=== PATIENT | female | born 1990 | race African-American/Black ===

== ENCOUNTER 2019-07-09 08:33 | Emergency (ER) | payer BC, MEDICAID ==
[2019-07-09 08:44] VITALS: BP 115/83
--- NOTE | 2019-07-09 10:16 | UC ---
Abdominal Pain Female HPI - HPI Summary HPI Summary: 2 DAYS OF RIGHT LOWER QUADRANT PAIN, NAUSEA, SUBJECTIVE FEVER AND CHILLS. APPETITE IS DOWN. DENIES URINARY SYMPTOMS. - History of Current Complaint Chief Complaint: UCGeneralIllness Stated Complaint: ABD PAIN Time Seen by Provider: 07/09/19 09:57 Hx Obtained From: Patient Hx Last Menstrual Period: 06/09/19 Onset/Duration: Gradual Onset, Lasting Days, Still Present Timing: Constant Severity Initially: Moderate Severity Currently: Moderate Pain Intensity: 2 Pain Scale Used: 0-10 Numeric Location: Discrete At: RLQ Radiates: No Character: Dull Aggravating Factor(s): Food, Movement Alleviating Factor(s): Nothing Associated Signs and Symptoms: Positive: Fever, Decreased Appetite, Nausea. Negative: Urinary Symptoms Allergies/Adverse Reactions: Allergies Allergy/AdvReac Type Severity Reaction Status Date / Time No Known Allergies Allergy Verified 07/09/19 08:38 Home Medications: Home Medications Sertraline* [Zoloft*] 100 mg PO DAILY 07/09/19 [History Confirmed 07/09/19] PMH/Surg Hx/FS Hx/Imm Hx Previously Healthy: Yes - Surgical History Surgical History: None - Family History Known Family History: Positive: Non-Contributory - Social History Alcohol Use: Occasionally Substance Use Type: None Smoking Status (MU): Never Smoked Tobacco Review of Systems All Other Systems Reviewed And Are Negative: Yes Constitutional: Positive: Fever, Chills Respiratory: Positive: Negative Cardiovascular: Positive: Negative Gastrointestinal: Positive: Abdominal Pain, Nausea Genitourinary: Positive: Negative Physical Exam Triage Information Reviewed: Yes Appearance: Well-Appearing, No Pain Distress, Well-Nourished Vital Signs: Initial Vital Signs Temp 97.9 F 07/09/19 08:39 Pulse 90 07/09/19 08:39 Resp 18 07/09/19 08:39 BP 115/83 07/09/19 08:39 Pulse Ox 100 07/09/19 08:39 Vital Signs Reviewed: Yes Eyes: Positive: Conjunctiva Clear ENT: Positive: Hearing grossly normal Neck: Positive: Supple Respiratory Exam: Normal Cardiovascular Exam: Normal Abdomen Description: Positive: Nontender - RLQ TENDERNESS, Soft, Guarding, Other : - POS OBTURATOR, POS PSOAS. PAIN WITH LIGHT PERCUSSION. Negative: Distended Bowel Sounds: Positive: Present Musculoskeletal: Positive: No Edema Neurological: Positive: Alert Psychological: Positive: Age Appropriate Behavior Skin: Negative: Rashes Abd Pain Female Course/Dx - Course Course Of Treatment: CONCERN FOR ACUTE APPENDICITIS. PT OFFERED TRANSPORT TO THE ER BY AMBULANCE BUT DECLINES. ADVISED THAT BY NOT TRAVELING IN A MONITORED SETTING SHE COULD BE RISKING WORSENING OF HER CONDITION THAT COULD POSE A THREAT TO HER LIFE, HEALTH AND MEDICAL SAFETY. SHE VERBALIZES UNDERSTANDING AND CONTINUES TO DECLINE AMBULANCE TRANSFER. PT INSTRUCTED TO BE NPO. - Differential Dx/Diagnosis Provider Diagnosis: RLQ abdominal pain Discharge ED - Sign-Out/Discharge Documenting (check all that apply): Patient Departure All imaging exams completed and their final reports reviewed: No Studies - Discharge Plan Condition: Stable Disposition: TRANS HIGHER LVL OF CARE FAC Patient Education Materials: Abdominal Pain (ED) Referrals: No Primary Care Phys,NOPCP [Primary Care Provider] - Additional Instructions: I'M CONCERNED ABOUT YOUR APPENDIX. GO DIRECTLY TO [facility] ER FROM HERE FOR FURTHER EVALUATION. YOU HAVE DECLINED TRANSFER TO THE ER BY AMBULANCE. BE ADVISED THAT BY NOT TRAVELING IN A MONITORED SETTING YOU COULD BE RISKING WORSENING OF YOUR CONDITION THAT COULD POSE A THREAT TO YOUR LIFE, HEALTH AND MEDICAL SAFETY. - Billing Disposition and Condition Condition: STABLE Disposition: Trans Higher Lvl of Care Fac
== END 2019-07-09 10:16 | disposition short-term general hospital (02) ==
LOC: UCEAST 08:33
DX: R10.31 Right lower quadrant pain (principal)
CPT/HCPCS: 99202; G0463

== ENCOUNTER 2019-07-29 11:41 | Emergency (ER) | payer BC ==
--- NOTE | 2019-07-29 12:52 | ED ---
Abdominal Pain/Female - HPI Summary HPI Summary: Patient is a 29 y/o F presenting to [facility] with complaints of RLQ pain. Patient had similar pain 2-2.5 weeks ago, at [facility] and she had CT ABD/PEL with contrast which showed no appendicitis. The pain spontaneously resolved but has now returned yesterday, 07/28/19. No nausea, vomiting, fever, vaginal bleeding or dysuria, but pain is more severe. At present, pain is rated 7/10. She reports movement aggravates pain. She denies Hx of gallbladder issues, ovarian cysts, ectopic , STI. She has never been . Patient is on Sertaline 100 mg. She denies allergies to medications. Patient denies tobacco and substance usage. She states that she drinks alcohol socially. FMHx of diabetes and HTN is reported. Patient states her last PO intake was 1/2 a cup of coffee and a cereal bar this morning at around 0800, 07/29/19. Pulse 96, o2 100 on RA, BP 147/100. Home medications and allergies are reviewed. Patient drove herself to ED. Allergies Allergy/AdvReac Type Severity Reaction Status Date / Time No Known Allergies Allergy Verified 07/09/19 08:38 - History of Current Complaint Chief Complaint: EDAbdPain Stated Complaint: LOWER ABDOMINAL PAIN PER PT Time Seen by Provider: 07/29/19 12:28 Hx Obtained From: Patient Hx Last Menstrual Period: 07/11/2019 Onset/Duration: Lasting Days, Still Present Timing: Constant Severity Initially: Moderate Severity Currently: Severe Pain Intensity: 8 Pain Scale Used: 0-10 Numeric Location: Discrete At: RLQ Radiates: No Character: Sharp Aggravating Factor(s): Movement Alleviating Factor(s): Nothing Associated Signs and Symptoms: Negative: Fever, Urinary Symptoms - no dysuria, Vaginal Bleeding, Nausea, Vomiting Allergies/Adverse Reactions: Allergies Allergy/AdvReac Type Severity Reaction Status Date / Time No Known Allergies Allergy Verified 07/09/19 08:38 PMH/Surg Hx/FS Hx/Imm Hx Previously Healthy: Yes Endocrine/Hematology History: Denies: Hx Diabetes, Hx Thyroid Disease Cardiovascular History: Denies: Hx Hypertension Respiratory History: Denies: Hx Asthma, Hx Chronic Obstructive Pulmonary Disease (COPD) GI History: Denies: Hx Ulcer - Surgical History Surgical History: None Infectious Disease History: No Infectious Disease History: Denies: Hx Hepatitis, Hx Human Immunodeficiency Virus (HIV), Traveled Outside the [place] in Last 30 Days - Family History Known Family History: Positive: Hypertension, Diabetes - Social History Alcohol Use: Occasionally Substance Use Type: Reports: None Smoking Status (MU): Never Smoked Tobacco Review of Systems Negative: Fever Cardiovascular: Negative Respiratory: Negative Positive: Abdominal Pain. Negative: Vomiting, Nausea Genitourinary: Other - negative - vaginal bleeding Negative: dysuria Skin: Negative Neurological: Negative Psychological: Normal All Other Systems Reviewed And Are Negative: Yes Physical Exam - Summary Physical Exam Summary: Appearance: Ill-appearing, severe acute pain distress due to RLQ abdominal pain , thin-appearing Skin: Warm, color reflects adequate perfusion, dry Head: Normal Head/Face inspection, atraumatic Eyes: Conjunctiva clear ENT: Normal inspection Neck: Supple, no nodes, no JVD Respiratory: Lungs clear, normal breath sounds, no respiratory distress Cardio: RRR, No murmur, pulses normal, brisk capillary refill Abdomen: Soft, RLQ tenderness with guarding and no rebound, no masses, no distention Bowel sounds: Present Musculoskeletal: Strength Intact/ROM intact, no calf tenderness, no edema. Psychological: Normal Neuro: Alert, muscle tone normal, no focal deficit Triage Information Reviewed: Yes Vital Signs On Initial Exam: Initial Vitals Temp Pulse Resp BP Pulse Ox 98.9 F 89 16 127/99 99 07/29/19 11:42 07/29/19 11:42 07/29/19 11:42 07/29/19 11:42 07/29/19 11:42 Vital Signs Reviewed: Yes Procedures - Sedation Patient Received Moderate/Deep Sedation with Procedure: No Diagnostics - Vital Signs Vital Signs Temp Pulse Resp BP Pulse Ox 07/29/19 11:42 98.9 F 89 16 127/99 99 - Laboratory Result Diagrams: 07/29/19 15:00 07/29/19 15:00 Lab Statement: Any lab studies that have been ordered have been reviewed, and results considered in the medical decision making process. - CT CT ABD/PEL CT Interpretation Completed By: Radiologist Summary of CT Findings: IMPRESSION: 1. NORMAL APPENDIX. 2. RIGHT OVARIAN CYST. 3. LARGE AMOUNT OF STOOL THROUGHOUT THE COLON. 4. FATTY INFILTRATION OF THE LIVER. THIS REPORT WAS REVIEWED BY DR. CANO. - Ultrasound APPENDIX US Ultrasound Interpretation Completed By: Radiologist Summary of Ultrasound Findings: APPENDIX US IMPRESSION: The appendix is not identified. THIS REPORT WAS REVIEWED BY DR. CANO. Re-Evaluation - Re-Evaluation First Eval Re-Evaluation Time: 14:24 Comment: Nurse Asuncion reports that IV access is unable to be obtained. Second Eval Re-Evaluation Time: 20:00 Change: Improved Comment: Pt feels much better. Ambulated to BR. Pain is a 2-3, tolerable for pt. Discussed CT results. Pt understands and will have REO ASSET MANAGER follow up. Abdominal Pain Fem Course/Dx - Course Course Of Treatment: Patient is a 29 y/o F presenting to [facility] with complaints of RLQ pain. Patient had similar pain 2-2.5 weeks ago, at [facility] she had CT ABD/PEL at with contrast which showed no appendicitis. The pain spontaneously resolved but has now returned yesterday, 07/28/19. No nausea, vomiting, fever, vaginal bleeding or dysuria, but pain is more severe. She denies Hx of gallbladder issues, ovarian cysts, ectopic , STI. Abdomen : Soft, RLQ tenderness with guarding and no rebound, no masses, no distention. Bloodwork was obtained. Abnormal values include MPV 7.2, chloride 99. UA was negative. During ED course, patient received fluids and 30 mg IV toradol. APPENDIX US IMPRESSION: The appendix is not identified. CT ABD/PEL to be obtained. CT ABD/PEL IMPRESSION: 1. NORMAL APPENDIX. 2. RIGHT OVARIAN CYST. 3. LARGE AMOUNT OF STOOL THROUGHOUT THE COLON. 4. FATTY INFILTRATION OF THE LIVER. Results of labs and scans were discussed. Patient reports improvement of pain. She will be discharged to home and follow up with REO ASSET MANAGER. - Diagnoses Differential Diagnosis: Positive: Appendicitis, Ectopic , Irritable Bowel Syndrome, Ovarian Cyst, Renal Colic Provider Diagnoses: Right ovarian cyst, Fatty liver, Constipation Discharge ED - Sign-Out/Discharge Documenting (check all that apply): Patient Departure - discharge - Discharge Plan Condition: Stable Disposition: HOME Patient Education Materials: Ovarian Cyst (ED) Forms: *Work Release Referrals: [facility] [Outside] - 2 Days Raul Mar MD [Medical Doctor] - As Soon As Possible Additional Instructions: We have given you a copy of your CT scan showing an ovarian cyst. You will need definite follow up for this with REO ASSET MANAGER. Your appendix is normal at this time. You were given ketorolac 30mg IV and IV fluids while you were in the ER which helped your symptoms. Please return to the ER if you have any new or worsening symptoms. - Billing Disposition and Condition Condition: STABLE Disposition: Home - Attestation Statements Document Initiated by Norm: Yes Documenting Scribe: FABIÁN SHEPHERD Provider For Whom Norm is Documenting (Include Credential): OLIVIA CANO MD Scribe Attestation: FABIÁN Arzola, scribed for OLIVIA CANO MD on 08/14/19 at 2050. Scribe Documentation Reviewed: Yes Provider Attestation: The documentation as recorded by the FABIÁN bergman accurately reflects the service I personally performed and the decisions made by me, OLIVIA CANO MD Status of Scribe Document: Viewed
[2019-07-29] MEDS: NS 0.9% 1000 ML** 2,000 ML IV ONE (15:05)
[2019-07-29 15:13] LABS: Urine Appearance Clear; Urine Bilirubin Negative (Negative); Urine Blood Negative (Negative); Urine Color Yellow; Urine Glucose Negative (Negative); Urine Ketones Negative (Negative); Urine Nitrite Negative (Negative); Urine Protein Negative (Negative); Urine Specific Gravity 1.009 (1.010-1.030); Urine Urobilinogen Negative (Negative)
[2019-07-29 15:17] LABS: ABS Eosinophils 0.1 10^3/ul (0-0.6); ABS Lymphocytes 2.8 10^3/ul (1.0-4.8); ABS Monocytes 0.7 10^3/ul (0-0.8); ABS Neutrophils 2.7 10^3/ul (1.5-7.7); Eosinophil % 2.3 %; Hematocrit 44 % (35-47); Hemoglobin 14.7 g/dL (12.0-16.0); Lymphocyte % 43.6 %; Mean Corpuscular HGB Conc 33 g/dL (31-36); Mean Corpuscular Hemoglobin 31 pg (27-31); Mean Corpuscular Volume 93 fL (80-97); Mean Platelet Volume 7.2 fL (7.4-10.4); Nucleated Red Blood Cells % 0.1; Platelet Count 328 10^3/uL (150-450); Red Blood Count 4.74 10^6 /uL (3.70-4.87); Red Cell Distribution Width 14 % (10-15); White Blood Count 6.3 10^3/uL (3.5-10.8)
[2019-07-29] MEDS ORDERED: Ketorolac INJ* 30 MG/ML 1 ML VIAL IV ONE (15:22)
[2019-07-29 15:27] LABS: INR 0.98 (0.82-1.09)
[2019-07-29 15:37] LABS: ALT 10 U/L (7-52); AST 16 U/L (13-39); Albumin 4.8 g/dL (3.2-5.2); Albumin/Globulin Ratio 1.4 (1-3); Alkaline Phosphatase 51 U/L (34-104); Amylase 86 U/L (29-103); Anion Gap 8 mmol/L (2-11); Blood Urea Nitrogen 6 mg/dL (6-24); C Reactive Protein < 1.00 mg/L (<8.01); CO2 Carbon Dioxide 29 mmol/L (22-32); Calcium 10.1 mg/dL (8.6-10.3); Chloride 99 mmol/L (101-111); EGFR African American 111.3 (>60); Globulin 3.5 g/dL (2-4); Glucose 80 mg/dL (70-100); Magnesium 2.1 mg/dL (1.9-2.7); Potassium 3.6 mmol/L (3.5-5.0); Sodium 136 mmol/L (135-145); Total Protein 8.3 g/dL (6.4-8.9)
[2019-07-29 15:40] LABS: HCG Pregnancy < 0.60 mIU/mL
[2019-07-29] MEDS ORDERED: Iohexol 300* (CONTRAST) 10 ML SDV IV ONE (16:31)
[2019-07-29 19:43] VITALS: BP 122/85
== END 2019-07-29 20:15 | disposition home or self-care (01) ==
LOC: ED 11:41
DX: N83.201 Unspecified ovarian cyst, right side (principal); K59.00 Constipation, unspecified; K76.0 Fatty (change of) liver, not elsewhere classified; R10.31 Right lower quadrant pain
CPT/HCPCS: 36415; 74177; 76705; 80053; 81003; 82150; 83605; 83690; 83735; 84702; 85025; 85610; 85730; 86140; 96361; 96374; 99283; J1885; Q9967

== ENCOUNTER 2019-09-04 08:12 | Emergency (ER) | payer BC ==
[2019-09-04] MEDS ORDERED: Silver Sulfadiazine 1% 400gm* 1 APPLIC JAR TOPICAL ONE (08:47)
[2019-09-04] MEDS ORDERED: Ketorolac INJ* 30 MG/ML 1 ML VIAL IM ONE (08:58)
--- NOTE | 2019-09-04 09:27 | ED ---
GI/ HPI - HPI Summary HPI Summary: 29-year-old female presents with abdominal pain today. States that she's had this pain occasionally for the past month. she has history ovarian cyst. States it feels like her ovarian history pain. She hasn't tried the pain. Denies any nausea vomiting. she states she has had small cust that was told should not cause her pain. She denies any urinary symptoms. No abnormal vaginal discharge. Denies any chance of . No change in appetite. Has no medical conditions. - History of Current Complaint Chief Complaint: EDAbdPain Time Seen by Provider: 09/04/19 08:43 Stated Complaint: LEFT SIDE PELVIC PAIN PER PT Hx Last Menstrual Period: 07/11/2019 Pain Intensity: 6 - Allergy/Home Medications Allergies/Adverse Reactions: Allergies Allergy/AdvReac Type Severity Reaction Status Date / Time No Known Allergies Allergy Verified 07/09/19 08:38 PMH/Surg Hx/FS Hx/Imm Hx Endocrine/Hematology History: Denies: Hx Diabetes, Hx Thyroid Disease Cardiovascular History: Denies: Hx Hypertension Respiratory History: Denies: Hx Asthma, Hx Chronic Obstructive Pulmonary Disease (COPD) GI History: Denies: Hx Ulcer Infectious Disease History: No Infectious Disease History: Denies: Hx Hepatitis, Hx Human Immunodeficiency Virus (HIV), Traveled Outside the [place] in Last 30 Days - Family History Known Family History: Positive: Hypertension, Diabetes, Non-Contributory - Social History Alcohol Use: Occasionally Substance Use Type: Reports: None Smoking Status (MU): Never Smoked Tobacco Review of Systems Negative: Fever Negative: Chest Pain Negative: Shortness Of Breath Positive: Abdominal Pain. Negative: Vomiting, Diarrhea, Nausea All Other Systems Reviewed And Are Negative: Yes Physical Exam Triage Information Reviewed: Yes Vital Signs On Initial Exam: Initial Vitals Temp Pulse Resp BP 98.6 F 99 18 128/92 09/04/19 08:13 09/04/19 08:13 09/04/19 08:13 09/04/19 08:13 Vital Signs Reviewed: Yes Appearance: Positive: Well-Appearing Skin: Positive: Warm, Dry Head/Face: Positive: Normal Head/Face Inspection Eyes: Positive: Normal, Conjunctiva Clear ENT: Positive: Pharynx normal Respiratory/Lung Sounds: Positive: Clear to Auscultation, Breath Sounds Present Cardiovascular: Positive: Normal, RRR Abdomen Description: Positive: Soft, Other: - tenderness right pelvic area Bowel Sounds: Positive: Present Musculoskeletal: Positive: Normal Neurological: Positive: Normal Psychiatric: Positive: Normal Procedures - Sedation Patient Received Moderate/Deep Sedation with Procedure: No Diagnostics - Vital Signs Vital Signs Temp Pulse Resp BP Pulse Ox 09/04/19 08:15 97.8 F 68 16 125/74 100 09/04/19 08:13 98.6 F 99 18 128/92 - Laboratory Result Diagrams: 09/04/19 09:35 09/04/19 09:35 Lab Statement: Any lab studies that have been ordered have been reviewed, and results considered in the medical decision making process. - Ultrasound No standard instances Ultrasound Interpretation Completed By: Radiologist Summary of Ultrasound Findings: IMPRESSION: SMALL 1.6 CM COMPLEX LEFT OVARIAN CYST. Re-Evaluation - Re-Evaluation First Eval Re-Evaluation Time: 10:20 Change: Improved Comment: discussed results, patient states felt a pop yesterday so may have had a cyst on that side that ruptured GIGU Course/Dx - Course Course Of Treatment: 29-year-old female presents with abdominal pain today. States that she's had this pain occasionally for the past month. she has history ovarian cyst. States it feels like her ovarian history pain. She hasn' t tried the pain. Denies any nausea vomiting. she states she has had small cust that was told should not cause her pain. She denies any urinary symptoms. No abnormal vaginal discharge. Denies any chance of . No change in appetite. Has no medical conditions. On exam tenderness right pelvic area. urine no infection. wbc normal. transvaginal u/s shows left ovarian cyst. crp normal. do not suspect other process such as appendicitis as may is lower than appendix. patient declined pelvic. will have follow up with orientation and mobility instructor. patient understand and agrees with plan. - Diagnoses Differential Diagnoses - Female: Ovarian Cyst, Ovarian Torsion, Urinary Tract Infection Provider Diagnoses: Abdominal pain, Ovarian cyst Discharge ED - Sign-Out/Discharge Documenting (check all that apply): Patient Departure - Discharge Plan Condition: Good Disposition: HOME Patient Education Materials: Ovarian Cyst (ED) Forms: *School Release Referrals: No Primary Care Phys,NOPCP [Primary Care Provider] - Additional Instructions: Take Tylenol or ibuprofen every 6 hours for pain Apply heat Follow up with obgyn Return to ED if develop any new or worsening symptoms - Billing Disposition and Condition Condition: GOOD Disposition: Home
[2019-09-04 09:38] LABS: Urine Appearance Clear; Urine Bilirubin Negative (Negative); Urine Blood Negative (Negative); Urine Color Yellow; Urine Glucose Negative (Negative); Urine Ketones Negative (Negative); Urine Nitrite Negative (Negative); Urine Protein Negative (Negative); Urine Urobilinogen Negative (Negative)
[2019-09-04 09:48] LABS: ABS Eosinophils 0.1 10^3/ul (0-0.6); ABS Lymphocytes 2.3 10^3/ul (1.0-4.8); ABS Monocytes 0.9 10^3/ul (0-0.8); Hematocrit 43 % (35-47); Hemoglobin 14.4 g/dL (12.0-16.0); Lymphocyte % 35.6 %; Mean Corpuscular HGB Conc 34 g/dL (31-36); Mean Corpuscular Hemoglobin 31 pg (27-31); Mean Corpuscular Volume 93 fL (80-97); Mean Platelet Volume 7.1 fL (7.4-10.4); Platelet Count 276 10^3/uL (150-450); Red Blood Count 4.58 10^6 /uL (3.70-4.87); Red Cell Distribution Width 14 % (10-15); White Blood Count 6.4 10^3/uL (3.5-10.8)
[2019-09-04 10:03] LABS: ALT 8 U/L (7-52); AST 15 U/L (13-39); Albumin/Globulin Ratio 1.1 (1-3); Alkaline Phosphatase 47 U/L (34-104); Anion Gap 4 mmol/L (2-11); BUN/Creatinine Ratio 13.2 (8-20); Blood Urea Nitrogen 10 mg/dL (6-24); C Reactive Protein < 1.00 mg/L (<8.01); CO2 Carbon Dioxide 30 mmol/L (22-32); Calcium 9.5 mg/dL (8.6-10.3); Chloride 104 mmol/L (101-111); EGFR African American 109.6 (>60); EGFR Non-African American 90.6 (>60); Globulin 3.6 g/dL (2-4); Glucose 53 mg/dL (70-100); Potassium 3.8 mmol/L (3.5-5.0); Sodium 138 mmol/L (135-145); Total Protein 7.6 g/dL (6.4-8.9)
[2019-09-04 10:08] LABS: HCG Pregnancy < 0.60 mIU/mL
[2019-09-04 10:31] VITALS: BP 122/85
== END 2019-09-04 10:30 | disposition home or self-care (01) ==
LOC: ED 08:12
DX: R10.9 Unspecified abdominal pain (principal); N83.202 Unspecified ovarian cyst, left side
CPT/HCPCS: 36415; 76830; 80053; 81003; 83690; 84702; 85025; 86140; 96372; 99282; J1885

== ENCOUNTER 2019-10-20 10:56 | Emergency (ER) | payer BC ==
[2019-10-20 11:17] VITALS: BP 113/72
--- NOTE | 2019-10-20 11:20 | UC ---
Eye Complaint HPI - HPI Summary HPI Summary: 29 yo female presents with spot on left eye. She tells me that last night her boyfriend noticed a white/yellow spot on left eye. Pt has no pain, burning, itching, drainage, vision changes, or symptoms. She denies injury or FB into eye. Sometimes wears glasses, but no contacts. - History of Current Complaint Chief Complaint: UCEye Stated Complaint: EYE ISSUE Time Seen by Provider: 10/20/19 11:20 Hx Obtained From: Patient Hx Last Menstrual Period: On control Onset/Duration: Sudden Onset Severity Currently: None Pain Intensity: 0 - Allergies/Home Medications Allergies/Adverse Reactions: Allergies Allergy/AdvReac Type Severity Reaction Status Date / Time No Known Allergies Allergy Verified 10/20/19 11:17 PMH/Surg Hx/FS Hx/Imm Hx Psychological History: Anxiety, Depression - Surgical History Surgical History: None - Family History Known Family History: Positive: Hypertension, Diabetes, Non-Contributory - Social History Lives: With Family Alcohol Use: Occasionally Substance Use Type: None Smoking Status (MU): Never Smoked Tobacco Review of Systems All Other Systems Reviewed And Are Negative: No Constitutional: Positive: Negative Skin: Positive: Negative Eyes: Positive: Other - Eye lesion Respiratory: Positive: Negative Cardiovascular: Positive: Negative Neurological: Positive: Negative Psychological: Positive: Negative Physical Exam - Summary Physical Exam Summary: GENERAL: NAD. WDWN. No pain distress. SKIN: No rashes, sores, lesions, or open wounds. HEENT: Head: AT/NC Eyes: EOM intact. PERRLA. Conjunctiva clear without inflammation or discharge. LEFT EYE: Right sclera just right of iris there is a 1mm area of yellowish-whiteish cyst appearing bubble. No injection or subconjunctival hemorrhage. NECK: Supple. Nontender. No lymphadenopathy. CHEST: CTAB. No r/r/w. No accessory muscle use. Breathing comfortably and in no distress. CV: RRR. Pulses intact. Cap refill <2seconds NEURO: Alert. PSYCH: Age appropriate behavior. Triage Information Reviewed: Yes Vital Signs: Initial Vital Signs Temp 98.8 F 10/20/19 11:14 Pulse 74 10/20/19 11:14 Resp 16 10/20/19 11:14 BP 113/72 10/20/19 11:14 Pulse Ox 98 10/20/19 11:14 Vital Signs Reviewed: Yes Eye Complaint Course/Dx - Course Course Of Treatment: Suspect conjunctival/scleral cyst. Advised pt to try OTC lubricating eye drops and if still present in 1 week OR if symptoms worsen to call ophthalmology for a check. - Differential Dx/Diagnosis Provider Diagnosis: Conjunctival cyst Discharge ED - Sign-Out/Discharge Documenting (check all that apply): Patient Departure All imaging exams completed and their final reports reviewed: No Studies - Discharge Plan Condition: Stable Disposition: HOME Referrals: No Primary Care Phys,NOPCP [Primary Care Provider] - Franc Zepeda MD [Medical Doctor] - If Needed Additional Instructions: The spot on your eye appears to be a conjunctival cyst - these are fairly common and resolve with time and/or lubricating eye drops over the counter. If the area becomes bigger, you have pain or vision changes, or if it is still present after 1 week - please call the eye doctor at the number below to schedule an appointment for further evaluations - Billing Disposition and Condition Condition: STABLE Disposition: Home - Attestation Statements Provider Attestation: This patient was not seen by me. I was available for consult. Chart reviewed. SHANON
== END 2019-10-20 11:31 | disposition home or self-care (01) ==
LOC: UCEAST 10:56
DX: H11.442 Conjunctival cysts, left eye (principal)
CPT/HCPCS: 99211; G0463

== ENCOUNTER 2020-02-07 19:32 | Emergency (ER) | payer BC ==
--- NOTE | 2020-02-07 19:43 | UC ---
Abdominal Pain Female HPI - HPI Summary HPI Summary: Patient is a 29 year old female, who present today to the urgent care with right lower pelvic/groin area pain since April of last year. Pain has been constant and gets worse intermittently. She has been seen by OB/ [facility], Dr. Mar and was put on control pills for past 4 months. She was also seen by Dr. Andrade . She had abdominal ultrasound done recently on 01/07/20- normal exam, fatty liver not found. Transvaginal ultrasound on August demonstrate 1.6 cm complex left ovarian cyst . Had a prior CT done on July 29, 2019 that showed right ovarian cyst and fatty liver. An ultrasound on July 29, 2019 did not demonstrate appendix. She has recently started menses 4 days ago and her pain got worse for past 2 days. She denies any fever or chills , urinary or vaginal symptoms. Her menses are regular .She denies any nausea vomiting diarrhea or constipation either. She is currently not taking any medications for pain. Pain is worse with movement of her hip and significant pain is noted with flexor muscle use. She denies any low back pain or any any radicular symptoms, numbness , tingling , incontinence, saddle anesthesia , motor or sensory disturbance. Overall she feels that she is very healthy except for this pain which has been since the last year. - History of Current Complaint Stated Complaint: PELVIC PAIN Time Seen by Provider: 02/07/20 19:36 Hx Obtained From: Patient Hx Last Menstrual Period: On control ?: No - Menses now Allergies/Adverse Reactions: Allergies Allergy/AdvReac Type Severity Reaction Status Date / Time No Known Allergies Allergy Verified 02/07/20 19:38 Home Medications: Home Medications NK [No Home Medications Reported] 02/07/20 [History Confirmed 02/07/20] PMH/Surg Hx/FS Hx/Imm Hx - Additional Past Medical History Additional PMH: Past Medical History : None Past Surgical History: No Past History of Procedure Family History : Negative/ none Social History : Occasional alcohol, non smoker, no drug use. Previously Healthy: Yes - Surgical History Surgical History: None - Family History Known Family History: Positive: Hypertension, Diabetes, Non-Contributory - Social History Alcohol Use: Occasionally Substance Use Type: None Smoking Status (MU): Never Smoked Tobacco Review of Systems All Other Systems Reviewed And Are Negative: Yes Constitutional: Positive: Negative Skin: Positive: Negative Eyes: Positive: Negative ENT: Positive: Negative Respiratory: Positive: Negative Cardiovascular: Positive: Negative Gastrointestinal: Positive: Abdominal Pain Genitourinary: Positive: Negative Motor: Positive: Negative Neurovascular: Positive: Negative Musculoskeletal: Positive: Arthralgia - Right hip, Decreased ROM - Right hip Neurological/Mental Status: Positive: Negative Psychological: Positive: Negative Is Patient Immunocompromised?: No Physical Exam - Summary Physical Exam Summary: Physical Exam: Const: Appears well. No signs of apparent distress present. Alert and oriented x 3. Musculo: Walks with a normal gait. Head/Face: Atraumatic, normocephalic on inspection. Eyes: EOMI and PERRLA in both eyes. Conjunctivae clear. No discharge noted ENT: Hearing normal Respiratory: Respirations are unlabored. Lungs clear to auscultation bilaterally, no wheezing , rhonchi or rales noted . CVS: Regular rate and Rhythm, S1S2 normal , no murmurs identified. Extremities: Peripheral circulation is grossly normal. Pulses 2+ Abdomen : Soft , nondistended , Bowel sounds present . There is tenderness to palpation in the right lower quadrant/groin area below the ASIS . There is significant guarding , no rebound tenderness or rigidity noted. Skin: No lesions or rash located on the upper extremities or on the lower extremities. Neuro: Cranial nerves II to XII intact, motor and sensory intact. DTR Intact bilaterally. Mood is normal. Affect is normal. Right hip: There is tenderness to palpation in the proximal flexor muscle group. Tone normal Range of motion: Limited and painful Strength: Worsening pain with flexor testing, cannot do an abdominal crunch. Flexor strength is 4/5 with pain Special tests: DARCY and FADIR test is limited and painful Single leg hop test on affected side is painful. Triage Information Reviewed: Yes Vital Signs Reviewed: Yes Abd Pain Female Course/Dx - Course Course Of Treatment: reviewed recent imaging: abdominal ultrasound done recently on 01/07/20- normal exam, fatty liver not found. Transvaginal ultrasound on August demonstrate 1.6 cm complex left ovarian cyst . Had a prior CT done on July 29, 2019 that showed right ovarian cyst and fatty liver. An ultrasound on July 29, 2019 did not demonstrate appendix. She has recently started menses 4 days ago and her pain got worse for past 2 days. X-rays of right hip joint done today: prelim report: No fracture of the right hip joint are the pelvis was identified. Discussed that she should follow-up with Dr. [place] and and also consider consulting orthopedics since her right lower pelvic pain can be originating in her hip joint with a possibility of a labral tear and MRI e valuation with an official. Advise her to take ibuprofen 400 mg 2-3 times a day to see if it relieves her pain. Also advised her that x-rays were done after 6 PM and no official radiology read is available at this time . X-rays will be read tomorrow morning by radiologist and if anything different, somebody will call you with the findings and further plan. - Differential Dx/Diagnosis Provider Diagnosis: Pelvic pain, Right hip pain Discharge ED - Sign-Out/Discharge Documenting (check all that apply): Patient Departure All imaging exams completed and their final reports reviewed: No - Discharge Plan Condition: Stable Disposition: HOME Patient Education Materials: Pelvic Pain in Women (ED), Hip Pain (ED) Referrals: No Primary Care Phys,NOPCP [Primary Care Provider] - Xi Andrade MD [Medical Doctor] - 2 Days Raul Mar MD [Medical Doctor] - 2 Days Juan Antonio Bruner MD [Medical Doctor] - 2 Days Additional Instructions: Try ibuprofen 400 mg 2-3 times a day as needed to control her pain. follow-up with Dr. Mar and consulting orthopedics - right lower pelvic pain / groin can be originating in hip joint with a possibility of a labral tear and MRI evaluation will be helpful Return to Urgent care / ER if symptoms get worse. - Billing Disposition and Condition Condition: STABLE Disposition: Home
[2020-02-07 19:46] VITALS: BP 118/79
--- NOTE | 2020-02-08 11:31 | UC ---
- Progress Note Progress Note: RADIOLOGY REPORT REVIEWED. NO ACUTE OSSEOUS INJURY. NO CHANGE IN MGMT. Course/Dx - Diagnoses Provider Diagnoses: Pelvic pain, Right hip pain Discharge ED - Sign-Out/Discharge Documenting (check all that apply): Post-Discharge Follow Up All imaging exams completed and their final reports reviewed: Yes - Discharge Plan Condition: Stable Disposition: HOME Patient Education Materials: Pelvic Pain in Women (ED), Hip Pain (ED) Referrals: Juan Antonio Bruner MD [Medical Doctor] - 2 Days Raul Mar MD [Medical Doctor] - 2 Days Xi Andrade MD [Medical Doctor] - 2 Days No Primary Care Phys,NOPCP [Primary Care Provider] - Additional Instructions: Try ibuprofen 400 mg 2-3 times a day as needed to control her pain. follow-up with Dr. Mar and consulting orthopedics - right lower pelvic pain / groin can be originating in hip joint with a possibility of a labral tear and MRI evaluation will be helpful Return to Urgent care / ER if symptoms get worse. - Billing Disposition and Condition Condition: STABLE Disposition: Home
== END 2020-02-07 20:25 | disposition home or self-care (01) ==
LOC: UCEAST 19:32
DX: R10.2 Pelvic and perineal pain (principal); M25.551 Pain in right hip
CPT/HCPCS: 99211; G0463

== ENCOUNTER 2021-04-23 00:57 | Inpatient (IN) ==
[2021-04-23] MEDS ORDERED: Buffered Lidocaine 1% SYRIN 1 ml INTRADERM ONE (02:14)
[2021-04-23] MEDS ORDERED: Lactated Ringers 1000 ml BAG 1,000 ML IV ONE ×2 (02:14→03:49)
[2021-04-23 02:21] LABS: Hematocrit 39 % (35-47); Hemoglobin 13.8 g/dL (12.0-16.0); Mean Corpuscular HGB Conc 35 g/dL (31-36); Mean Corpuscular Hemoglobin 33 pg (27-31); Mean Corpuscular Volume 94 fL (80-97); Mean Platelet Volume 8.3 fL (7.4-10.4); Platelet Count 246 10^3/uL (150-450); Red Cell Distribution Width 13 % (10-15)
[2021-04-23] MEDS ORDERED: OBEPIDURAL 250 ML EPIDURAL ONE (02:37)
[2021-04-23 02:39] LABS: Urine Benzodiazepine Screen None Detected (None Detect); Urine Cannabinoids Screen None Detected (None Detect); Urine Opiates Screen None Detected (None Detect)
[2021-04-23 02:48] LABS: ABS Basophils 0.2 10^3/ul (0-0.2); ABS Eosinophils 0.1 10^3/ul (0-0.6); ABS Lymphocytes 3.3 10^3/ul (1.0-4.8); ABS Monocytes 1.6 10^3/ul (0-0.8); ABS Neutrophils 5.9 10^3/ul (1.5-7.7); Eosinophil % 0.8 %; Lymphocyte % 29.8 %
[2021-04-23] MEDS ORDERED: Lactated Ringers 1000 ml BAG 1,000 ML IV SCH ×2 (03:00→04:00)
[2021-04-23] MEDS ORDERED: Sodium Citrate/Citric Acid LIQ 15 ML UDC PO PRN (03:49)
[2021-04-23] MEDS ORDERED: Phenylephrine 40 mcg/mL 10mL (400mcg) SYRINGE IV PUSH PRN ×2 (03:49)
[2021-04-23] MEDS ORDERED: EPHEDrine (Pressors) 50 MG/ML VIAL IV PUSH PRN ×2 (03:49)
[2021-04-23] MEDS ORDERED: OBEPIDURAL 250 ML EPIDURAL SCH (04:00)
[2021-04-23] MEDS ORDERED: Glycerin ADULT 2.4 gm SUPP PR PRN (05:54)
[2021-04-23] MEDS ORDERED: Witch Hazel PAD JAR TOPICAL PRN (05:54)
[2021-04-23] MEDS ORDERED: Lidocaine 1% VIAL 10 MG/ML VIAL ONE (11:11)
[2021-04-23] MEDS: Dibucaine 1% OINT 28.35 GM TUBE PR PRN (11:11)
[2021-04-24 06:50] LABS: ABS Eosinophils 0.2 10^3/ul (0-0.6); ABS Lymphocytes 3.2 10^3/ul (1.0-4.8); ABS Monocytes 1.5 10^3/ul (0-0.8); ABS Neutrophils 9.9 10^3/ul (1.5-7.7); Eosinophil % 1.7 %; Hematocrit 26 % (35-47); Hemoglobin 8.8 g/dL (12.0-16.0); Lymphocyte % 21.3 %; Mean Corpuscular HGB Conc 34 g/dL (31-36); Mean Corpuscular Hemoglobin 32 pg (27-31); Mean Corpuscular Volume 95 fL (80-97); Mean Platelet Volume 7.7 fL (7.4-10.4); Platelet Count 171 10^3/uL (150-450); Red Blood Count 2.73 10^6 /uL (3.70-4.87); Red Cell Distribution Width 13 % (10-15); White Blood Count 14.8 10^3/uL (3.5-10.8)
[2021-04-24] MEDS: Dibucaine 1% OINT 28.35 GM TUBE PR PRN (08:16)
[2021-04-25 07:26] LABS: Hematocrit 26 % (35-47); Hemoglobin 8.7 g/dL (12.0-16.0); Mean Corpuscular HGB Conc 34 g/dL (31-36); Mean Corpuscular Hemoglobin 33 pg (27-31); Mean Corpuscular Volume 96 fL (80-97); Mean Platelet Volume 7.6 fL (7.4-10.4); Platelet Count 198 10^3/uL (150-450); Red Blood Count 2.67 10^6 /uL (3.70-4.87); Red Cell Distribution Width 13 % (10-15); White Blood Count 11.9 10^3/uL (3.5-10.8)
[2021-04-25 08:03] LABS: ABS Basophils 0.1 10^3/ul (0-0.2); ABS Eosinophils 0.4 10^3/ul (0-0.6); ABS Monocytes 1.1 10^3/ul (0-0.8); ABS Neutrophils 7.3 10^3/ul (1.5-7.7); Eosinophil % 3.5 %; Lymphocyte % 25.4 %; Nucleated Red Blood Cells % 0.1
[2021-04-25] MEDS: Dibucaine 1% OINT 28.35 GM TUBE PR PRN (09:14)
[2021-04-25] MEDS ORDERED: Iron Sucrose 200 MG in NS 0.9% 100 ml BAG 100 ML IVPB ONE (10:00)
[2021-04-25 11:08] VITALS: BP 119/67
== END 2021-04-25 15:22 | disposition home or self-care (01) | DRG 560 ==
LOC: MCHOBOUT 00:57 → MCHOB 01:35
PROVIDERS: ADMIT Midwife; ATTEND Midwife

== ENCOUNTER 2022-05-14 15:47 | Inpatient (IN) ==
[2022-05-14] MEDS ORDERED: Lidocaine 1% MPF 5 ML VIAL ONE ×2 (16:36→19:11)
[2022-05-14] MEDS ORDERED: Buffered Lidocaine 1% SYRIN 1 ml INTRADERM ONE (16:55)
[2022-05-14] MEDS ORDERED: Lactated Ringers 1000 ml BAG 1,000 ML IV ONE (16:55)
[2022-05-14] MEDS ORDERED: Glycerin ADULT 2.4 gm SUPP PR PRN (16:58)
[2022-05-14] MEDS ORDERED: Oxytocin 10 UNITS/ML 1 ML VIAL IM ONE (16:58)
[2022-05-14] MEDS ORDERED: Witch Hazel PAD JAR TOPICAL PRN (16:58)
[2022-05-14] MEDS ORDERED: Lactated Ringers 1000 ml BAG 1,000 ML IV SCH ×2 (17:00)
[2022-05-14] MEDS: Dibucaine 1% OINT 28.35 GM TUBE PR PRN (17:58)
[2022-05-14] MEDS ORDERED: Oxytocin 10 UNITS/ML 1 ML VIAL ONE (19:10)
[2022-05-14 22:55] LABS: Urine Appearance Clear; Urine Bilirubin Negative (Negative); Urine Blood 3+ (Large) (Negative); Urine Color Straw; Urine Glucose Negative (Negative); Urine Ketones Negative (Negative); Urine Nitrite Negative (Negative); Urine Protein Negative (Negative); Urine Urobilinogen 0.2 (Negative) (Negative)
[2022-05-14 23:13] LABS: Urine Bacteria Absent (Absent); Urine Red Blood Cell 3+(>10/hpf) (Absent); Urine Squamous Epithelial Cell Present (Absent); Urine White Blood Cell Trace(0-5/hpf) (Absent)
[2022-05-14 23:18] LABS: Urine Benzodiazepine Screen None Detected (None Detect); Urine Cannabinoids Screen None Detected (None Detect); Urine Opiates Screen None Detected (None Detect)
[2022-05-15 06:23] LABS: Hematocrit 35 % (35-47); Hemoglobin 11.8 g/dL (12.0-16.0); Mean Corpuscular HGB Conc 34 g/dL (31-36); Mean Corpuscular Hemoglobin 31 pg (27-31); Mean Corpuscular Volume 91 fL (80-97); Mean Platelet Volume 7.9 fL (7.4-10.4); Platelet Count 208 10^3/uL (150-450); Red Blood Count 3.85 10^6 /uL (3.70-4.87); Red Cell Distribution Width 14 % (10-15); White Blood Count 14.7 10^3/uL (3.5-10.8)
[2022-05-15 06:45] LABS: ABS Basophils 0.1 10^3/ul (0-0.2); ABS Eosinophils 0.2 10^3/ul (0-0.6); ABS Lymphocytes 3.2 10^3/ul (1.0-4.8); ABS Monocytes 1.7 10^3/ul (0-0.8); ABS Neutrophils 9.5 10^3/ul (1.5-7.7); Eosinophil % 1.6 %; Lymphocyte % 21.5 %; Nucleated Red Blood Cells % 0.1
[2022-05-15] MEDS ORDERED: Lidocaine 4% GEL 10 GM TUBE TOPICAL ONE (22:29)
[2022-05-16] MEDS: Dibucaine 1% OINT 28.35 GM TUBE PR PRN (13:43)
[2022-05-16 16:00] VITALS: BP 114/72
== END 2022-05-16 14:15 | disposition home or self-care (01) | DRG 560 ==
LOC: MCHOBOUT 15:47 → MCHOB 15:50
PROVIDERS: ADMIT Midwife; ATTEND Midwife